=== PATIENT | female | born 1990 | race Caucasian/White ===

== ENCOUNTER 2025-03-10 12:18 | Inpatient (IN) | payer OTHER ==
[~2025-03-10] VITALS: Ht 165.1 cm; Wt 102.3 kg
[2025-03-10 13:59] LABS: PLATELET COUNT (AUTO) 347 K/uL (150-450); RED BLOOD CELL COUNT(AUTO) 5.05 MIL/uL (4.00-5.20); RED CELL DISTRIBUTION WIDTH 14.2 % (11.5-14.5); WHITE BLOOD COUNT (AUTO) 11.3 K/uL (4.5-11.0)
[2025-03-10 14:13] LABS: CALCIUM, TOTAL 9.8 mg/dL (8.8-10.5); CREATININE 0.87 mg/dL (0.60-1.30); GLOMERULAR FILTR. RATE CALC > 60 mL/min (>60); GLUCOSE,RANDOM 134 mg/dL (70-110); SODIUM SERUM 130 mmol/L (136-145); UREA NITROGEN, BLOOD 19 mg/dL (7-18)
[2025-03-10 14:21] LABS: ASPARTATE AMINOTRANSFERASE 26 U/L (15-37); HCG,QUANTITATIVE < 1 mIU/mL (0-6); TOTAL PROTEIN, SERUM 7.6 g/dL (6.4-8.2)
[2025-03-10] MEDS ORDERED: SODIUM CHLORIDE 0.9% 1,000 ML ONE (14:33)
[2025-03-10 14:37] LABS: ALCOHOL, BLOOD (SERUM) < 3 mg/dL (0-10)
[2025-03-10] MEDS: POTASSIUM CHL 10 MEQ/WATER 50 ML IV SCH (14:40)
[2025-03-10] MEDS: SODIUM CHLORIDE 0.9% 1,000 ML IV ONE (14:41)
[2025-03-10] MEDS: POTASSIUM CHLORIDE 20 MEQ ER TABLET PO ONE (14:41)
[2025-03-10] MEDS ORDERED: IOHEXOL 350 MG/ML 100 ML VIAL ONE (14:47)
[2025-03-10] MEDS: FAMOTIDINE 20 MG/2 ML VIAL IVP ONE (15:14)
[2025-03-10] MEDS: ONDANSETRON HCL 4 MG/2 ML VIAL IVP ONE (15:14)
[2025-03-10] MEDS ORDERED: MAGNESIUM SULFATE 4 GM/WATER 100 ML IV PRN (15:45)
[2025-03-10] MEDS ORDERED: POTASSIUM CHL 10 MEQ/WATER 50 ML IV PRN (15:45)
[2025-03-10] MEDS ORDERED: MAGNESIUM OXIDE 400 MG TABLET PO PRN (15:45)
[2025-03-10] MEDS: HEPARIN SODIUM,PORCINE 5,000 UNITS/ML VIAL SQ SCH (16:00)
[2025-03-10] MEDS: RINGERS SOLUTION,LACTATED 1,000 ML IV SCH (19:30)
[2025-03-10] MEDS: DOCUSATE SODIUM 100 MG CAPSULE PO SCH (20:58)
[2025-03-10 22:35] VITALS: BP 114/81; PULSE 115; RESP 18; TEMP 97.9; O2SAT 100
[2025-03-11] MEDS: SODIUM CHLORIDE 0.9% 250 ML IV ONE (00:27)
[2025-03-11 00:30] VITALS: BP 94/53; PULSE 112; RESP 18; TEMP 98.4; O2SAT 96
[2025-03-11] MEDS: POTASSIUM CHLORIDE 20 MEQ ER TABLET PO PRN (01:04)
[2025-03-11] MEDS: ACETAMINOPHEN 325 MG TABLET PO PRN (01:04)
[2025-03-11] MEDS: ONDANSETRON HCL 4 MG/2 ML VIAL IVP PRN (01:05)
[2025-03-11 03:46] VITALS: BP 111/85; PULSE 102; RESP 18; TEMP 98.1; O2SAT 96
[2025-03-11 06:48] LABS: PLATELET COUNT (AUTO) 248 K/uL (150-450); RED BLOOD CELL COUNT(AUTO) 4.24 MIL/uL (4.00-5.20); RED CELL DISTRIBUTION WIDTH 14.4 % (11.5-14.5); WHITE BLOOD COUNT (AUTO) 7.8 K/uL (4.5-11.0)
[2025-03-11 07:18] LABS: CALCIUM, TOTAL 9.1 mg/dL (8.8-10.5); CREATININE 0.48 mg/dL (0.60-1.30); GLOMERULAR FILTR. RATE CALC > 60 mL/min (>60); GLUCOSE,RANDOM 100 mg/dL (70-110); SODIUM SERUM 133 mmol/L (136-145); UREA NITROGEN, BLOOD 10 mg/dL (7-18)
[2025-03-11] MEDS: PIPERACILLIN/TAZO 3.375 GM/D5W 50 ML IV SCH (11:18)
[2025-03-11 20:24] VITALS: BP 104/69; PULSE 100; RESP 18; TEMP 98.2; O2SAT 99
[2025-03-12 00:17] VITALS: BP 127/98; PULSE 115; RESP 18; TEMP 98.2; O2SAT 99
[2025-03-12 05:51] VITALS: BP 118/76; PULSE 99; RESP 16; TEMP 98.4; O2SAT 96
[2025-03-12 06:20] LABS: PLATELET COUNT (AUTO) 257 K/uL (150-450); RED BLOOD CELL COUNT(AUTO) 4.24 MIL/uL (4.00-5.20); RED CELL DISTRIBUTION WIDTH 14.3 % (11.5-14.5); WHITE BLOOD COUNT (AUTO) 7.7 K/uL (4.5-11.0)
[2025-03-12 06:28] LABS: CALCIUM, TOTAL 9.3 mg/dL (8.8-10.5); CREATININE 0.42 mg/dL (0.60-1.30); GLOMERULAR FILTR. RATE CALC > 60 mL/min (>60); GLUCOSE,RANDOM 129 mg/dL (70-110); SODIUM SERUM 136 mmol/L (136-145); UREA NITROGEN, BLOOD 5 mg/dL (7-18)
[2025-03-12 07:27] VITALS: BP 116/78; PULSE 89; RESP 18; TEMP 97.5; O2SAT 97
[2025-03-12 11:51] VITALS: BP 104/77; PULSE 99; RESP 16; TEMP 98.8; O2SAT 97
[2025-03-12] MEDS: MAGNESIUM SULFATE 2 GM/WATER 50 ML IV PRN (12:53)
[2025-03-12] MEDS: MAGNESIUM SULFATE 2 GM/WATER 50 ML IV ONE (13:00)
[2025-03-12] MEDS ORDERED: AMOX-457 PO (16:58)
[2025-03-12 17:09] VITALS: BP 122/80; PULSE 97; RESP 18; TEMP 98.2; O2SAT 98
[2025-03-12] MEDS: POTASSIUM CHLORIDE 10% 40 MEQ/30 ML LIQUID UDCUP PO ONE (17:22)
== END 2025-03-12 19:45 | DRG 390 ==
LOC: EMS 12:21 → EDH 15:36 → 5S 22:25
PROVIDERS: ADMIT Internal Medicine; ATTEND Internal Medicine
DX: K56.609 Unspecified intestinal obstruction, unspecified as to partial versus complete obstruction (principal); K52.9 Noninfective gastroenteritis and colitis, unspecified; K56.7 Ileus, unspecified; T43.595A Adverse effect of other antipsychotics and neuroleptics, initial encounter; E87.6 Hypokalemia; F17.200 Nicotine dependence, unspecified, uncomplicated; E83.42 Hypomagnesemia; F31.9 Bipolar disorder, unspecified; Y92.89 Other specified places as the place of occurrence of the external cause
CPT/HCPCS: 74021; 74022; 74177; 80048; 80076; 80178; 82040; 83690; 83735; 84132; 84702; 85025; 93005; 96361; 96374; 96375; 99285; G0480; J1644; J2405; J2543; J3475; J3480; J3490; J7030; J7050; J7120; 36415-L1; 36415-TC